=== PATIENT | female | born 1945 | race Caucasian/White ===

== ENCOUNTER 2016-07-11 11:27 | Inpatient (IN) | payer MEDICARE ==
[~2016-07-11] VITALS: Ht 152.4 cm; Wt 52.5 kg
[2016-07-11] MEDS ORDERED: ALBUTEROL/IPRATROPIUM 2.5MG/0.5MG, 3 ML ONE ×2 (11:42→13:11)
[2016-07-11] MEDS ORDERED: SODIUM CHLORIDE 0.9% 1,000ML IVBOLUS ONE ×2 (12:00→13:30)
[2016-07-11] MEDS ORDERED: PLEASE ENTER ALLERGIES MC SCH ×2 (12:00)
[2016-07-11] MEDS ORDERED: ALBUTEROL/IPRATROPIUM 2.5MG/0.5MG, 3 ML NPPB ONE (12:00)
[2016-07-11] MEDS ORDERED: SODIUM CHLORIDE FLUSH 10ML SYR IVF ONE (12:00)
[2016-07-11] MEDS: SODIUM CHLORIDE 0.9% 1,000 ML IV ONE ×2 (12:05→12:25)
[2016-07-11 12:23] LABS: BLOOD UREA NITROGEN 17 mg/dL (7-18)
[2016-07-11 12:30] LABS: ASPARTATE AMINO TRANSFERASE 31 U/L (15-37); IS PT STATUS REG ER OR PRE ER? YES
[2016-07-11] MEDS ORDERED: OMNIPAQUE 350 MG/ML, 100ML BOTTLE ONE (13:13)
[2016-07-11] MEDS ORDERED: CEFTRIAXONE PMX 1GM/50ML 50 ML IVPB ONE (13:30)
[2016-07-11] MEDS ORDERED: AZITHROMYCIN 500 MG in SODIUM CHLORIDE 0.9% 250 ML IVPB ONE (13:30)
[2016-07-11] MEDS ORDERED: CEFTRIAXONE PMX 1GM/50ML 50 ML ONE (13:45)
[2016-07-11] MEDS ORDERED: SODIUM CHLORIDE FLUSH 10ML SYR IVF PRN (14:00)
[2016-07-11] MEDS ORDERED: POLYETHYLENE GLYCOL 17 GM PACKET PO PRN (14:30)
[2016-07-11] MEDS ORDERED: NS + 20MEQ KCL 1,000 ML IV SCH (14:30)
[2016-07-11] MEDS ORDERED: HYDROcodone/APAP 5/325 TABLET PO PRN (14:30)
[2016-07-11] MEDS ORDERED: MORPHINE SULFATE 4 MG/ML, 1ML IVPush PRN (14:30)
[2016-07-11] MEDS ORDERED: DOCUSATE 100 MG CAPSULE PO PRN (14:30)
[2016-07-11] MEDS ORDERED: ACETAMINOPHEN 325 MG TABLET PO PRN (14:30)
[2016-07-11] MEDS ORDERED: ONDANSETRON 2MG/ML, 2ML IVP PRN (14:30)
[2016-07-11] MEDS: CEFTRIAXONE PMX 1GM/50ML 50 ML IV SCH (14:43)
[2016-07-11] MEDS: methylPREDNISolone SOD SUCC 125 MG/2 ML IVPush SCH ×2 (14:46→21:59)
[2016-07-11 15:52] VITALS: BP 91/76
[2016-07-11 16:01] VITALS: BP 91/76
[2016-07-11] MEDS: DOXYCYCLINE 100 MG in DEXTROSE 5% 250 ML IV SCH (16:33)
[2016-07-11] MEDS: ENOXAPARIN 40 MG/0.4 ML SQ SCH (16:38)
[2016-07-11] MEDS: NICOTINE 7 MG/24 HR PATCH.TD24 TD SCH (16:38)
[2016-07-11] MEDS: ALBUTEROL/IPRATROPIUM 2.5MG/0.5MG, 3 ML NPPB SCH ×2 (18:55→23:00)
[2016-07-11 20:26] VITALS: BP 125/83
[2016-07-11] MEDS: GUAIFENESIN/DM 200-20MG, 10ML UDC PO PRN (21:59)
[2016-07-12] MEDS: ALBUTEROL/IPRATROPIUM 2.5MG/0.5MG, 3 ML NPPB SCH ×7 (02:00→21:19)
[2016-07-12] MEDS: DOXYCYCLINE 100 MG in DEXTROSE 5% 250 ML IV SCH ×2 (04:10→16:25)
[2016-07-12 04:13] VITALS: BP 115/79
[2016-07-12] MEDS: GUAIFENESIN/DM 200-20MG, 10ML UDC PO PRN ×2 (04:32→13:24)
[2016-07-12] MEDS: methylPREDNISolone SOD SUCC 125 MG/2 ML IVPush SCH ×3 (06:11→22:53)
[2016-07-12 06:30] LABS: BLOOD UREA NITROGEN 11 mg/dL (7-18)
[2016-07-12 06:38] LABS: IS PT STATUS REG ER OR PRE ER? NO
[2016-07-12 08:37] VITALS: BP 113/47
[2016-07-12] MEDS: SENNA/DOCUSATE TABLET PO SCH (10:13)
[2016-07-12 13:15] VITALS: BP 116/72
[2016-07-12] MEDS: ENOXAPARIN 40 MG/0.4 ML SQ SCH (15:08)
[2016-07-12] MEDS: CEFTRIAXONE PMX 1GM/50ML 50 ML IV SCH (15:09)
[2016-07-12] MEDS: NICOTINE 7 MG/24 HR PATCH.TD24 TD SCH (15:09)
[2016-07-12 20:00] VITALS: BP 142/84
[2016-07-13] MEDS: ALBUTEROL/IPRATROPIUM 2.5MG/0.5MG, 3 ML NPPB SCH ×6 (03:03→22:07)
[2016-07-13 03:23] VITALS: BP 127/78
[2016-07-13] MEDS: DOXYCYCLINE 100 MG in DEXTROSE 5% 250 ML IV SCH ×2 (03:47→16:12)
[2016-07-13 05:30] LABS: BLOOD UREA NITROGEN 15 mg/dL (7-18)
[2016-07-13 07:18] VITALS: BP 113/80
[2016-07-13] MEDS: methylPREDNISolone SOD SUCC 125 MG/2 ML IVPush SCH ×3 (07:30→22:25)
[2016-07-13] MEDS: SENNA/DOCUSATE TABLET PO SCH (09:00)
[2016-07-13 14:43] VITALS: BP 126/75
[2016-07-13] MEDS: NICOTINE 7 MG/24 HR PATCH.TD24 TD SCH (14:59)
[2016-07-13] MEDS: ENOXAPARIN 40 MG/0.4 ML SQ SCH (14:59)
[2016-07-13] MEDS: CEFTRIAXONE PMX 1GM/50ML 50 ML IV SCH (14:59)
[2016-07-13 19:17] VITALS: BP 144/97
[2016-07-13] MEDS: LORazepam 0.5MG TABLET PO PRN (22:26)
[2016-07-14] MEDS: ALBUTEROL/IPRATROPIUM 2.5MG/0.5MG, 3 ML NPPB SCH ×7 (02:30→22:11)
[2016-07-14 02:54] VITALS: BP 110/70
[2016-07-14] MEDS: DOXYCYCLINE 100 MG in DEXTROSE 5% 250 ML IV SCH ×2 (05:09→16:53)
[2016-07-14] MEDS: LORazepam 0.5MG TABLET PO PRN ×2 (06:51→23:05)
[2016-07-14] MEDS: methylPREDNISolone SOD SUCC 125 MG/2 ML IVPush SCH ×3 (06:51→23:01)
[2016-07-14 08:04] VITALS: BP 133/40
[2016-07-14] MEDS: SENNA/DOCUSATE TABLET PO SCH (09:00)
[2016-07-14 14:23] VITALS: BP 119/88
[2016-07-14] MEDS: CEFTRIAXONE PMX 1GM/50ML 50 ML IV SCH (14:31)
[2016-07-14] MEDS: NICOTINE 7 MG/24 HR PATCH.TD24 TD SCH (14:31)
[2016-07-14] MEDS: ENOXAPARIN 40 MG/0.4 ML SQ SCH (14:31)
[2016-07-14 18:50] VITALS: BP 130/56
[2016-07-15 00:49] VITALS: BP 115/74
[2016-07-15] MEDS: DOXYCYCLINE 100 MG in DEXTROSE 5% 250 ML IV SCH ×2 (04:36→16:00)
[2016-07-15] MEDS: methylPREDNISolone SOD SUCC 125 MG/2 ML IVPush SCH ×2 (06:43→14:30)
[2016-07-15] MEDS: ALBUTEROL/IPRATROPIUM 2.5MG/0.5MG, 3 ML NPPB SCH ×3 (06:45→14:00)
[2016-07-15 07:35] VITALS: BP 112/75
[2016-07-15] MEDS: SENNA/DOCUSATE TABLET PO SCH (09:00)
[2016-07-15] MEDS ORDERED: NICO1PAT4 TD (13:00)
[2016-07-15] MEDS ORDERED: DOXY100T PO (13:00)
[2016-07-15] MEDS ORDERED: PRED5TAB PO (13:00)
[2016-07-15] MEDS ORDERED: IPRA3AMP NPPB (13:00)
[2016-07-15] MEDS ORDERED: ALBU90AE INH (13:00)
[2016-07-15] MEDS ORDERED: LORA-445 PO (13:00)
[2016-07-15] MEDS ORDERED: CEFD300C37 PO (13:00)
[2016-07-15 13:54] VITALS: BP 115/75
[2016-07-15] MEDS: ENOXAPARIN 40 MG/0.4 ML SQ SCH (14:30)
[2016-07-15] MEDS: NICOTINE 7 MG/24 HR PATCH.TD24 TD SCH (14:30)
[2016-07-15] MEDS: CEFTRIAXONE PMX 1GM/50ML 50 ML IV SCH (14:48)
[2016-07-15] MEDS ORDERED: PNEUMOCOCCAL 23 VACCINE IM-VACC ONE (16:00)
== END 2016-07-15 17:25 | disposition home or self-care (01) | DRG 871 ==
LOC: ED 13:46 → EDIP 13:47 → ED 14:16 → SUATTDRO 14:28 → 4NOR 15:41
PROVIDERS: ADMIT Family Medicine; ATTEND Family Medicine
DX: A41.9 Sepsis, unspecified organism (principal); J15.9 Unspecified bacterial pneumonia; J96.01 Acute respiratory failure with hypoxia; E44.0 Moderate protein-calorie malnutrition; J44.0 Chronic obstructive pulmonary disease with (acute) lower respiratory infection; J44.1 Chronic obstructive pulmonary disease with (acute) exacerbation; F17.200 Nicotine dependence, unspecified, uncomplicated; Z82.5 Family history of asthma and other chronic lower respiratory diseases; Z68.22 Body mass index [BMI] 22.0-22.9, adult; Z23 Encounter for immunization
CPT/HCPCS: 36415; 71275; 80048; 80053; 83605; 83735; 83880; 84145; 84484; 85025; 85610; 85730; 87040; 90732; 93005; 93306; 94640; 96361; 96365; 96367; J0456; J0696; J1650; J3480; J7060; J7620; Q9967; J2930; J7030; J7050; J7512

== ENCOUNTER 2016-09-28 19:01 | Inpatient (IN) | payer MEDICARE ==
[~2016-09-28] VITALS: Ht 147.3 cm; Wt 53.1 kg
[~2016-09-28 19:01] MED LIST: ALBU90AE INH; CEFD300C37 PO; DOXY100T PO; IPRA3AMP NPPB; LORA-445 PO; NICO1PAT4 TD; PRED5TAB PO
[2016-09-28 19:22] LABS: HEMATOCRIT 39.6 % (34.6-47.8); HEMOGLOBIN 12.9 g/dL (11.7-16.4); WHITE BLOOD COUNT 7.8 x10^3/uL (3.4-10)
[2016-09-28 19:30] LABS: BLOOD UREA NITROGEN 15 mg/dL (7-18)
[2016-09-28] MEDS ORDERED: SODIUM CHLORIDE FLUSH 10ML SYR IVF ONE (19:30)
[2016-09-28 19:36] LABS: IS PT STATUS REG ER OR PRE ER? YES
[2016-09-28] MEDS ORDERED: SODIUM CHLORIDE FLUSH 10ML SYR IVF PRN (20:30)
[2016-09-28] MEDS ORDERED: BUDE10.2 INH (20:34)
[2016-09-28] MEDS ORDERED: POLYETHYLENE GLYCOL 17 GM PACKET PO PRN (21:00)
[2016-09-28] MEDS ORDERED: NITROGLYCERIN 0.4 MG BOTTLE (25 TABS) SL PRN (21:00)
[2016-09-28] MEDS ORDERED: BISACODYL 10 MG SUPP PR PRN (21:00)
[2016-09-28] MEDS ORDERED: ONDANSETRON 2MG/ML, 2ML IVPush PRN (21:00)
[2016-09-28] MEDS ORDERED: ACETAMINOPHEN 325 MG TABLET PO PRN (21:00)
[2016-09-28] MEDS ORDERED: morphine SULFATE 10 MG/ML, 1ML IVPush PRN (21:00)
[2016-09-28] MEDS ORDERED: HEPARIN 5,000 UNITS/ML, 1ML SQ SCH (21:00)
[2016-09-28 21:29] VITALS: BP 171/93
[2016-09-28] MEDS: SODIUM CHLORIDE FLUSH 10ML SYR IVF SCH (21:54)
[2016-09-28 22:29] VITALS: BP_SYST 156; BP_SYST 177; BP_DIAS 101; BP_DIAS 104
[2016-09-28] MEDS ORDERED: ALBUTEROL/IPRATROPIUM 2.5MG/0.5MG, 3 ML NPPB PRN (22:30)
[2016-09-28 23:12] VITALS: BP 176/115
[2016-09-28 23:13] VITALS: BP 165/110
[2016-09-28 23:19] VITALS: BP_SYST 142; BP_SYST 143; BP_DIAS 85; BP_DIAS 92
[2016-09-28] MEDS ORDERED: ENALAPRILAT 1.25 MG/ML, 2ML IV PRN (23:30)
[2016-09-29 01:10] VITALS: BP 166/92
[2016-09-29 01:38] LABS: IS PT STATUS REG ER OR PRE ER? NO
[2016-09-29] MEDS ORDERED: HEPARIN 5,000 UNITS/ML, 1ML IV ONE (02:00)
[2016-09-29] MEDS ORDERED: HEPARIN 25,000 UNITS/500ML PMX 500 ML IV PRN (02:00)
[2016-09-29] MEDS ORDERED: HEPARIN 5,000 UNITS/ML, 1ML IV PRN (02:00)
[2016-09-29] MEDS: LISINOPRIL 10 MG TABLET PO SCH ×2 (02:33→09:11)
[2016-09-29] MEDS ORDERED: ASPIRIN 325 MG TABLET EC PO SCH (06:00)
[2016-09-29] MEDS: ASPIRIN 81 MG TABLET EC PO SCH (06:11)
[2016-09-29 07:14] LABS: IS PT STATUS REG ER OR PRE ER? NO
[2016-09-29 08:22] VITALS: BP 142/84
[2016-09-29] MEDS ORDERED: FLUTICASONE/VILANTEROL 100-25MCG/INH INH SCH (09:00)
[2016-09-29] MEDS: SODIUM CHLORIDE FLUSH 10ML SYR IVF SCH ×2 (09:00→20:52)
[2016-09-29] MEDS: SENNA/DOCUSATE TABLET PO SCH (09:00)
[2016-09-29] MEDS: FLUTICASONE/VILANTEROL 100-25MCG/INH INH SCH (09:00)
[2016-09-29] MEDS ORDERED: BIVALIRUDIN 250 MG ONE (09:03)
[2016-09-29] MEDS ORDERED: MIDAZOLAM 1 MG/ML, 5ML ONE (09:03)
[2016-09-29] MEDS ORDERED: TICAGRELOR 90 MG TABLET ONE (09:03)
[2016-09-29] MEDS ORDERED: HEPARIN 1,000 UNITS/ML, 10ML ONE (09:03)
[2016-09-29] MEDS ORDERED: VERAPAMIL 2.5 MG/ML, 2ML ONE (09:03)
[2016-09-29] MEDS ORDERED: LIDOCAINE 2%, 20ML ONE (09:03)
[2016-09-29] MEDS ORDERED: FENTANYL PF 100 MCG/2ML ONE (09:03)
[2016-09-29] MEDS: CARVEDILOL 3.125 MG TABLET PO SCH ×2 (09:11→18:19)
[2016-09-29] MEDS ORDERED: ADENOSINE 90 MG/30 ML ONE (09:58)
[2016-09-29] MEDS ORDERED: SODIUM CHLORIDE 0.9% 1,000 ML IV SCH (10:24)
[2016-09-29] MEDS ORDERED: ONDANSETRON 2MG/ML, 2ML ONE (10:41)
[2016-09-29 13:02] VITALS: BP 112/75
[2016-09-29 19:33] VITALS: BP 121/74
[2016-09-29] MEDS: TICAGRELOR 90 MG TABLET PO SCH (20:52)
[2016-09-29] MEDS ORDERED: ATORVASTATIN 80 MG TABLET PO SCH (21:00)
[2016-09-30 02:39] VITALS: BP 104/64
[2016-09-30 05:31] LABS: HEMATOCRIT 37.4 % (34.6-47.8); HEMOGLOBIN 12.3 g/dL (11.7-16.4)
[2016-09-30 05:41] LABS: BLOOD UREA NITROGEN 10 mg/dL (7-18)
[2016-09-30] MEDS: ASPIRIN 81 MG TABLET EC PO SCH (06:22)
[2016-09-30 07:02] VITALS: BP 98/63
[2016-09-30 08:15] VITALS: BP 109/71
[2016-09-30] MEDS: CARVEDILOL 3.125 MG TABLET PO SCH (08:16)
[2016-09-30] MEDS: TICAGRELOR 90 MG TABLET PO SCH (08:16)
[2016-09-30] MEDS: LISINOPRIL 10 MG TABLET PO SCH (08:16)
[2016-09-30] MEDS: FLUTICASONE/VILANTEROL 100-25MCG/INH INH SCH (08:17)
[2016-09-30] MEDS: SODIUM CHLORIDE FLUSH 10ML SYR IVF SCH (08:17)
[2016-09-30] MEDS: SENNA/DOCUSATE TABLET PO SCH (08:17)
[2016-09-30] MEDS ORDERED: ASPI-621 PO (10:33)
[2016-09-30] MEDS ORDERED: TICA90TA PO (10:33)
[2016-09-30] MEDS ORDERED: CARV3.1212 PO (10:33)
[2016-09-30] MEDS ORDERED: ATOR80TA75 PO (10:33)
[2016-09-30] MEDS ORDERED: LISI-167 PO (10:33)
== END 2016-09-30 13:06 | disposition home or self-care (01) | DRG 246 ==
LOC: ED 20:19 → EDIP 20:20 → ED 20:23 → 5SO 21:19
PROVIDERS: ADMIT Internal Medicine; ATTEND Internal Medicine
PROC: 027034Z Dilation of Coronary Artery, One Artery with Drug-eluting Intraluminal Device, Percutaneous Approach (ICD-10-PCS; principal; 2016-09-29)
PROC: 4A023N7 Measurement of Cardiac Sampling and Pressure, Left Heart, Percutaneous Approach (ICD-10-PCS; 2016-09-29)
PROC: B2111ZZ Fluoroscopy of Multiple Coronary Arteries using Low Osmolar Contrast (ICD-10-PCS; 2016-09-29)
PROC: B2151ZZ Fluoroscopy of Left Heart using Low Osmolar Contrast (ICD-10-PCS; 2016-09-29)
DX: I21.4 Non-ST elevation (NSTEMI) myocardial infarction (principal); I50.33 Acute on chronic diastolic (congestive) heart failure; J44.9 Chronic obstructive pulmonary disease, unspecified; E78.5 Hyperlipidemia, unspecified; E87.6 Hypokalemia; I10 Essential (primary) hypertension; I25.10 Atherosclerotic heart disease of native coronary artery without angina pectoris; K21.9 Gastro-esophageal reflux disease without esophagitis; Z79.82 Long term (current) use of aspirin; Z79.899 Other long term (current) drug therapy; Z87.891 Personal history of nicotine dependence; Z87.01 Personal history of pneumonia (recurrent); Z83.6 Family history of other diseases of the respiratory system; Z82.49 Family history of ischemic heart disease and other diseases of the circulatory system; Z80.8 Family history of malignant neoplasm of other organs or systems
CPT/HCPCS: 36415; 71010; 80047; 80048; 80061; 82040; 84439; 84443; 84484; 85014; 85018; 85025; 85520; 85610; 85730; 93005; 93458; 93571; 99156; 99157; 99291; C1894; C9600; J0153; J0583; J1644; J2250; J2405; J3010; J3490; C1725; C1769; C1874; C1887; Q9967

== ENCOUNTER → 2016-11-14 | Outpatient (CLI) | payer MEDICARE ==
[~2016-11-14] MED LIST changes: +ASPI-621 PO; +ATOR-2 PO; +BUDE10.2 INH; +CARV3.1212 PO; +LISI-167 PO; +NICO1PAT13 TD; -NICO1PAT4 TD; +TICA90TA PO
== END | disposition home or self-care (01) ==
LOC: CARD 14:09
PROVIDERS: ATTEND Internal Medicine Critical Care Medicine
DX: R06.02 Shortness of breath (principal)
CPT/HCPCS: 94060; 94620; 94726; 94729

== ENCOUNTER → 2017-02-27 | Outpatient (CLI) | payer MEDICARE ==
[~2017-02-27] MED LIST changes: +NICO-486 TD; -NICO1PAT13 TD
== END | disposition home or self-care (01) ==
LOC: CFH 11:19
PROVIDERS: ATTEND Internal Medicine Critical Care Medicine
DX: Z12.2 Encounter for screening for malignant neoplasm of respiratory organs (principal); J44.9 Chronic obstructive pulmonary disease, unspecified; Z87.891 Personal history of nicotine dependence
CPT/HCPCS: G0297

== ENCOUNTER → 2017-04-02 | Outpatient (CLI) | payer MEDICARE | LOC: CFH 09:53 | PROVIDERS: ATTEND Nurse Practitioner Family | DX: Z02.9 Encounter for administrative examinations, unspecified (principal) ==

== ENCOUNTER → 2017-04-16 | Outpatient (CLI) | payer MEDICARE | END | disposition home or self-care (01) | LOC: PETCFH 09:49 | PROVIDERS: ATTEND Nurse Practitioner Family | DX: R91.1 Solitary pulmonary nodule (principal) | CPT/HCPCS: 78815; A9552 ==

== ENCOUNTER 2017-05-07 06:09 | Day surgery (SDC) | payer MEDICARE ==
[~2017-05-07] VITALS: Ht 147.3 cm; Wt 50.6 kg
[2017-05-07] MEDS ORDERED: SODIUM CHLORIDE 0.9% 1,000 ML IV SCH (06:57)
[2017-05-07] MEDS ORDERED: TICA90TA PO (07:07)
[2017-05-07] MEDS ORDERED: FLUT1AER INH (07:07)
[2017-05-07] MEDS ORDERED: ATOR-2 PO (07:07)
[2017-05-07] MEDS ORDERED: CARV3.122 PO (07:07)
[2017-05-07] MEDS ORDERED: ASPI-496 PO (07:07)
[2017-05-07] MEDS ORDERED: LISI-167 PO (07:07)
[2017-05-07 07:09] VITALS: BP 155/95
[2017-05-07] MEDS ORDERED: FENTANYL PF 100 MCG/2ML ONE (08:05)
[2017-05-07] MEDS ORDERED: NALOXONE 1 MG/ML, 2ML ONE (08:06)
[2017-05-07] MEDS ORDERED: FLUMAZENIL 0.1 MG/1 ML, 5ML ONE (08:06)
[2017-05-07] MEDS ORDERED: MIDAZOLAM 1 MG/ML, 2ML ONE (08:06)
== END 2017-05-07 12:35 ==
LOC: RAD 06:09
PROVIDERS: ATTEND Nurse Practitioner Family
DX: C34.91 Malignant neoplasm of unspecified part of right bronchus or lung (principal); Z79.82 Long term (current) use of aspirin; Z87.891 Personal history of nicotine dependence
CPT/HCPCS: 32405; 71045; 77012; 88305; 88341; 88342; 99156; 99157; J2250; J3010; J7030; G0461; J2310

== ENCOUNTER → 2017-05-08 | Outpatient (CLI) | payer MEDICARE ==
[~2017-05-08] MED LIST changes: +ASPI-496 PO; +CARV3.122 PO; +FLUT1AER INH
== END | disposition home or self-care (01) ==
LOC: CFH 12:08
PROVIDERS: ATTEND Nurse Practitioner Family
DX: N63.20 Unspecified lump in the left breast, unspecified quadrant (principal)
CPT/HCPCS: 77066

== ENCOUNTER → 2017-05-14 | Outpatient (CLI) | payer MEDICARE ==
[~2017-05-14] MED LIST changes: +LIDOCAINE 1%, 20ML ONE
== END | disposition home or self-care (01) ==
LOC: CFH 09:51
PROVIDERS: ATTEND Nurse Practitioner Family
DX: N63.20 Unspecified lump in the left breast, unspecified quadrant (principal)
CPT/HCPCS: 19083; 77065; 88305; J3490

== ENCOUNTER → 2017-06-26 | Outpatient (CLI) | payer MEDICARE ==
[~2017-06-26] MED LIST changes: -LIDOCAINE 1%, 20ML ONE
== END | disposition home or self-care (01) ==
LOC: STAR 10:31
PROVIDERS: ATTEND Thoracic Surgery (Cardiothoracic Vascular Surgery)
DX: Z01.818 Encounter for other preprocedural examination (principal)
CPT/HCPCS: 93005

== ENCOUNTER 2017-07-04 10:03 | Inpatient (IN) | payer MEDICARE ==
[2017-06-26 11:03] VITALS: BP 148/107
[~2017-07-04] VITALS: Ht 147.3 cm; Wt 58.7 kg
[~2017-07-04 10:03] MED LIST changes: +BUPIVACAINE/PF 0.5% ONE
[2017-07-04] MEDS ORDERED: FENTANYL PF 100 MCG/2ML ONE ×2 (11:40→14:32)
[2017-07-04] MEDS ORDERED: SODIUM BICARBONATE 4.2%, 5ML ONE (11:47)
[2017-07-04] MEDS ORDERED: LIDOCAINE 1%, 20ML ONE (11:47)
[2017-07-04] MEDS ORDERED: LIDOCAINE-MPF 1%, 2ML ONE (12:03)
[2017-07-04] MEDS ORDERED: BUPIVACAINE/PF 0.5% ONE (12:21)
[2017-07-04] MEDS ORDERED: EPINEPHRINE 1 MG/ML, 1ML ONE ×2 (12:21→12:44)
[2017-07-04] MEDS ORDERED: ISOSULFAN BLUE 10 MG/ML, 5ML IV ONE (12:21)
[2017-07-04] MEDS ORDERED: GABAPENTIN 300 MG CAPSULE ONE (12:23)
[2017-07-04] MEDS ORDERED: ONDANSETRON ODT 8 MG ONE (12:23)
[2017-07-04] MEDS ORDERED: OxyconTIN ER 10 MG TAB.ER ONE (12:23)
[2017-07-04] MEDS ORDERED: ONDANSETRON ODT 8 MG PO PRN (12:30)
[2017-07-04] MEDS ORDERED: GABAPENTIN 300 MG CAPSULE PO ONE (12:30)
[2017-07-04] MEDS ORDERED: OxyconTIN ER 10 MG TAB.ER PO ONE (12:30)
[2017-07-04] MEDS ORDERED: LACTATED RINGERS 1,000 ML IV SCH ×2 (12:33→12:37)
[2017-07-04] MEDS ORDERED: LABETALOL 5MG/ML, 20ML ONE (12:44)
[2017-07-04] MEDS ORDERED: PHENYLEPHRINE 10 MG/ML ONE (12:44)
[2017-07-04] MEDS ORDERED: LIDOCAINE-MPF 1%, 2ML INFIL ONE (13:00)
[2017-07-04] MEDS ORDERED: ONDANSETRON 2MG/ML, 2ML IVPush PRN ×2 (13:30→14:00)
[2017-07-04] MEDS ORDERED: LORazepam 2 MG/ML, 1ML IVPush PRN ×2 (13:30→14:00)
[2017-07-04] MEDS ORDERED: MIDAZOLAM 1 MG/ML, 2ML IV PRN (13:30)
[2017-07-04] MEDS ORDERED: LABETALOL 5MG/ML, 20ML IV PRN (13:30)
[2017-07-04] MEDS ORDERED: ALBUTEROL/IPRATROPIUM 2.5MG/0.5MG, 3 ML NPPB PRN ×2 (13:30→17:30)
[2017-07-04] MEDS ORDERED: hydrALAzine 20 MG/ML, 1ML IV PRN (13:30)
[2017-07-04] MEDS ORDERED: morphine SULFATE 10 MG/ML, 1ML IV PRN (13:30)
[2017-07-04] MEDS ORDERED: PROMETHAZINE 25 MG/ML, 1ML IV PRN (13:30)
[2017-07-04] MEDS ORDERED: ALBUTEROL SULFATE 2.5 MG/3 ML NPPB PRN (13:30)
[2017-07-04] MEDS ORDERED: OXYcodone 5 MG/5 ML ORAL.SOL UDC PO PRN (13:30)
[2017-07-04] MEDS ORDERED: DIAZEPAM 5 MG/ML, 2ML IVPush PRN (13:30)
[2017-07-04] MEDS ORDERED: MEPERIDINE/PF 25MG/0.5ML IVPush PRN (13:30)
[2017-07-04] MEDS ORDERED: DIPHENHYDRAMINE 50 MG/ML, 1ML IVPush PRN (14:00)
[2017-07-04] MEDS ORDERED: LORazepam 1MG TABLET PO PRN (14:00)
[2017-07-04] MEDS ORDERED: ENALAPRILAT 1.25 MG/ML, 2ML IVPush PRN (14:00)
[2017-07-04] MEDS ORDERED: hydrALAzine 20 MG/ML, 1ML IVPush PRN (14:00)
[2017-07-04] MEDS ORDERED: morphine SULFATE 10 MG/ML, 1ML IVPush PRN (14:00)
[2017-07-04] MEDS ORDERED: ACETAMINOPHEN 650 MG SUPP PR PRN (14:00)
[2017-07-04] MEDS ORDERED: ACETAMINOPHEN 325 MG TABLET PO PRN (14:00)
[2017-07-04] MEDS ORDERED: DIPHENHYDRAMINE 25 MG CAPSULE PO PRN (14:00)
[2017-07-04] MEDS: FAMOTIDINE 20 MG/2 ML IVPush SCH (14:00)
[2017-07-04] MEDS ORDERED: DEXAMETHASONE 4 MG/ML, 1ML ONE (14:21)
[2017-07-04] MEDS ORDERED: ONDANSETRON 2MG/ML, 2ML ONE ×2 (14:21→15:12)
[2017-07-04] MEDS ORDERED: CEFAZOLIN 1,000 MG ONE (14:21)
[2017-07-04] MEDS ORDERED: SUCCINYLCHOLINE 20 MG/ML, 10ML ONE (14:21)
[2017-07-04] MEDS ORDERED: PROPOFOL 10 MG/ML, 20ML ONE (14:21)
[2017-07-04] MEDS ORDERED: NEOSTIGMINE 1 MG/ML, 10ML ONE (14:21)
[2017-07-04] MEDS ORDERED: ROCURONIUM 10 MG/ML,10ML ONE (14:21)
[2017-07-04] MEDS ORDERED: GLYCOPYRROLATE 0.2MG/1ML, 5ML ONE (14:21)
[2017-07-04] MEDS ORDERED: SUGAMMADEX 200 MG/2 ML IVPush ONE (14:30)
[2017-07-04] MEDS: FENTANYL PF 100 MCG/2ML IV PRN ×3 (14:34→15:11)
[2017-07-04] MEDS: LACTATED RINGERS 1,000 ML IV SCH (16:29)
[2017-07-04 16:33] VITALS: BP 118/82
[2017-07-04 17:05] VITALS: BP 104/63
[2017-07-04 20:35] VITALS: BP 96/58
[2017-07-04] MEDS ORDERED: ATORVASTATIN 80 MG TABLET PO SCH (21:00)
[2017-07-04] MEDS: HYDROcodone/APAP 5/325 TABLET PO PRN (21:10)
[2017-07-04] MEDS: CARVEDILOL 3.125 MG TABLET PO SCH (21:11)
[2017-07-05] MEDS: FAMOTIDINE 20 MG/2 ML IVPush SCH ×2 (02:03→14:11)
[2017-07-05 02:23] VITALS: BP 91/69
[2017-07-05] MEDS: LACTATED RINGERS 1,000 ML IV SCH (03:08)
[2017-07-05 04:22] VITALS: BP 100/45
[2017-07-05 04:41] LABS: BASOPHILS # (AUTO) 0.01 x10^3/uL (0-0.1); BASOPHILS % (AUTO) 0 % (0-1); EOSINOPHILS % (AUTO) 0 % (1-7); LYMPHOCYTES % (AUTO) 9 % (22-44); MD NO; MEAN CORPUSCULAR HEMOGLOBIN 28.5 pg (27.0-34.8); MEAN CORPUSCULAR HGB CONC 33.2 g/dL (32.4-35.8); MEAN CORPUSCULAR VOLUME 85.7 fL (80-100); MONOCYTES # (AUTO) 1.03 x10^3/uL (0.2-0.8); MONOCYTES % (AUTO) 8 % (2-9); NEUTROPHILS # (AUTO) 10.83 x10^3/uL (1.8-6.8); NEUTROPHILS % (AUTO) 83 % (42-75); PLATELET COUNT 251 x10^3/uL (130-400); RED BLOOD COUNT 4.05 x10^6/uL (3.82-5.3); RED CELL DISTRIBUTION WIDTH 15.6 % (9.6-15.2)
[2017-07-05 04:50] LABS: ANION GAP 9 mmol/L (5-15); CALCIUM 8.2 mg/dL (8.5-10.1); CHLORIDE 109 mmol/L (98-107); CREATININE 0.75 mg/dL (0.55-1.02)
[2017-07-05] MEDS: HYDROcodone/APAP 5/325 TABLET PO PRN ×2 (06:56→14:43)
[2017-07-05 07:20] VITALS: BP 101/68
[2017-07-05] MEDS: CARVEDILOL 3.125 MG TABLET PO SCH (07:48)
[2017-07-05] MEDS ORDERED: LISINOPRIL 10 MG TABLET PO SCH (09:00)
[2017-07-05] MEDS ORDERED: FLUTICASONE/VILANTEROL 100-25MCG/INH INH SCH (09:00)
[2017-07-05] MEDS ORDERED: ENOXAPARIN 40 MG/0.4 ML SQ SCH (09:00)
[2017-07-08] MEDS ORDERED: LORA0.5T PO (09:57)
[2017-07-08] MEDS ORDERED: HYDR-3240 PO (09:58)
== END 2017-07-05 15:36 | disposition home or self-care (01) | DRG 164 ==
LOC: CFH 10:03 → ORIP 10:24 → EDSTATUS 14:00 → 3NW 16:13
PROVIDERS: ADMIT Surgery; ATTEND Surgery
PROC: 0BBF4ZZ Excision of Right Lower Lung Lobe, Percutaneous Endoscopic Approach (ICD-10-PCS; principal; 2017-07-04 14:30)
PROC: 0HBU0ZZ Excision of Left Breast, Open Approach (ICD-10-PCS; 2017-07-04 14:30)
DX: C34.31 Malignant neoplasm of lower lobe, right bronchus or lung (principal); J96.10 Chronic respiratory failure, unspecified whether with hypoxia or hypercapnia; I27.20 Pulmonary hypertension, unspecified; J44.9 Chronic obstructive pulmonary disease, unspecified; D05.12 Intraductal carcinoma in situ of left breast; G43.909 Migraine, unspecified, not intractable, without status migrainosus; Z87.891 Personal history of nicotine dependence; Z79.899 Other long term (current) drug therapy; Z79.82 Long term (current) use of aspirin
CPT/HCPCS: 19285; 36415; 71045; 76098; 80048; 85025; 86850; 86900; 86923; 88305; 88307; 88309; C1729; J0171; J0690; J1100; J1650; J2405; J2704; J2710; J3010; J3490; Q0162; 77065; J0330; J2270; J2370; J7120; S0028

== ENCOUNTER → 2017-07-31 | Outpatient (CLI) | payer MEDICARE ==
[~2017-07-31] MED LIST changes: -BUPIVACAINE/PF 0.5% ONE; +HYDR-3240 PO; +LORA0.5T PO
== END ==
LOC: ROC 12:52
PROVIDERS: ATTEND Radiology Radiation Oncology
DX: Z08 Encounter for follow-up examination after completed treatment for malignant neoplasm (principal); C34.31 Malignant neoplasm of lower lobe, right bronchus or lung; Z79.82 Long term (current) use of aspirin; Z87.891 Personal history of nicotine dependence
CPT/HCPCS: 99214; G0463

== ENCOUNTER → 2017-10-03 | Outpatient (CLI) | payer MEDICARE ==
[~2017-10-03] MED LIST changes: -IPRA3AMP NPPB; +IPRA3AMP30 NPPB
== END | disposition home or self-care (01) ==
LOC: ROC 08:59
PROVIDERS: ATTEND Radiology Radiation Oncology
DX: D05.12 Intraductal carcinoma in situ of left breast (principal); C34.31 Malignant neoplasm of lower lobe, right bronchus or lung
CPT/HCPCS: 99213; G0463

== ENCOUNTER → 2017-12-25 | Outpatient (CLI) | payer MEDICARE | END | disposition home or self-care (01) | LOC: CFH 12:39 | PROVIDERS: ATTEND Radiology Radiation Oncology | DX: D05.12 Intraductal carcinoma in situ of left breast (principal) | CPT/HCPCS: 77065 ==

== ENCOUNTER → 2017-12-27 | Outpatient (CLI) | payer MEDICARE | END | disposition home or self-care (01) | LOC: ROC 10:07 | PROVIDERS: ATTEND Radiology Radiation Oncology | DX: D05.12 Intraductal carcinoma in situ of left breast (principal) | CPT/HCPCS: 99213; G0463 ==

== ENCOUNTER → 2018-01-28 | Outpatient (CLI) | payer MEDICARE ==
[~2018-01-28] MED LIST changes: +OMNIPAQUE 350 MG/ML, 75ML BOTTLE ONE
== END | disposition home or self-care (01) ==
LOC: CFH 10:42
PROVIDERS: ATTEND Radiology Radiation Oncology
DX: J84.10 Pulmonary fibrosis, unspecified (principal); R91.8 Other nonspecific abnormal finding of lung field; I10 Essential (primary) hypertension
CPT/HCPCS: 71260; Q9967

== ENCOUNTER 2018-05-13 09:29 | Outpatient (CLI) | payer MEDICARE ==
[~2018-05-13 09:29] MED LIST changes: -ASPI-621 PO; +ASPI81TA45 PO; -OMNIPAQUE 350 MG/ML, 75ML BOTTLE ONE
== END 2018-05-13 23:59 | disposition home or self-care (01) ==
LOC: CFH 09:29
PROVIDERS: ATTEND Radiology Radiation Oncology
DX: C50.912 Malignant neoplasm of unspecified site of left female breast (principal); I10 Essential (primary) hypertension
CPT/HCPCS: 77066; G0279

== ENCOUNTER → 2018-06-04 | Outpatient (CLI) | payer MEDICARE | END | disposition home or self-care (01) | LOC: CFH 15:50 | PROVIDERS: ATTEND Family Medicine | DX: C34.11 Malignant neoplasm of upper lobe, right bronchus or lung (principal); C50.912 Malignant neoplasm of unspecified site of left female breast; J90 Pleural effusion, not elsewhere classified; J43.9 Emphysema, unspecified; R91.1 Solitary pulmonary nodule | CPT/HCPCS: 71250 ==

== ENCOUNTER 2018-06-06 07:43 | Outpatient (CLI) | payer MEDICARE | END 2018-06-06 23:59 | disposition home or self-care (01) | LOC: ROC 07:43 | PROVIDERS: ATTEND Radiology Radiation Oncology | DX: D05.12 Intraductal carcinoma in situ of left breast (principal) | CPT/HCPCS: 99213; G0463 ==

== ENCOUNTER → 2018-08-23 | Outpatient (CLI) | payer MEDICARE | END | disposition home or self-care (01) | LOC: ROC 08:58 | PROVIDERS: ATTEND Radiology Radiation Oncology | DX: Z08 Encounter for follow-up examination after completed treatment for malignant neoplasm (principal); Z85.3 Personal history of malignant neoplasm of breast | CPT/HCPCS: 99213; G0463 ==

== ENCOUNTER → 2019-05-15 | Outpatient (CLI) | payer MEDICARE | END | disposition home or self-care (01) | LOC: CFH 09:47 | PROVIDERS: ATTEND Radiology Radiation Oncology | DX: Z12.31 Encounter for screening mammogram for malignant neoplasm of breast (principal) | CPT/HCPCS: 77063; 77067 ==

== ENCOUNTER 2019-05-30 08:29 | Outpatient (CLI) | payer MEDICARE | END 2019-05-30 23:59 | disposition home or self-care (01) | LOC: ROC 08:29 | PROVIDERS: ATTEND Radiology Radiation Oncology | DX: D05.12 Intraductal carcinoma in situ of left breast (principal); C34.31 Malignant neoplasm of lower lobe, right bronchus or lung | CPT/HCPCS: 99213; G0463 ==

== ENCOUNTER 2019-09-02 12:01 | Outpatient (CLI) | payer MEDICARE ==
[~2019-09-02 12:01] MED LIST changes: +REGADENOSON 0.4 MG/5 ML SYRINGE ONE
== END 2019-09-02 23:59 | disposition home or self-care (01) ==
LOC: CFH 12:01
PROVIDERS: ATTEND Internal Medicine Cardiovascular Disease
DX: I25.2 Old myocardial infarction (principal); I25.10 Atherosclerotic heart disease of native coronary artery without angina pectoris
CPT/HCPCS: 78452; 93017; 93306; A9502; J2785

== ENCOUNTER → 2019-12-01 | Outpatient (CLI) | payer MEDICARE ==
[~2019-12-01] MED LIST changes: -REGADENOSON 0.4 MG/5 ML SYRINGE ONE
== END | disposition home or self-care (01) ==
LOC: CFH 10:57
PROVIDERS: ATTEND Radiology Radiation Oncology
DX: C34.31 Malignant neoplasm of lower lobe, right bronchus or lung (principal); J43.9 Emphysema, unspecified; J98.4 Other disorders of lung; I25.10 Atherosclerotic heart disease of native coronary artery without angina pectoris; I77.810 Thoracic aortic ectasia
CPT/HCPCS: 71250

== ENCOUNTER 2019-12-18 09:30 | Outpatient (CLI) | payer MEDICARE | END 2019-12-18 23:59 | disposition home or self-care (01) | LOC: ROC 09:30 | PROVIDERS: ATTEND Radiology Radiation Oncology | DX: Z08 Encounter for follow-up examination after completed treatment for malignant neoplasm (principal); Z85.3 Personal history of malignant neoplasm of breast; I25.10 Atherosclerotic heart disease of native coronary artery without angina pectoris; I10 Essential (primary) hypertension; E78.5 Hyperlipidemia, unspecified; I25.2 Old myocardial infarction | CPT/HCPCS: 99213; G0463 ==

== ENCOUNTER → 2020-05-17 | Outpatient (CLI) | payer MEDICARE ==
[~2020-05-17] MED LIST changes: +HYDR-1067 PO; -HYDR-3240 PO
== END | disposition home or self-care (01) ==
LOC: CFH 11:54
PROVIDERS: ATTEND Radiology Radiation Oncology
DX: Z12.31 Encounter for screening mammogram for malignant neoplasm of breast (principal)
CPT/HCPCS: 77063; 77067

== ENCOUNTER 2020-06-17 07:10 | Outpatient (CLI) | payer MEDICARE | END 2020-06-17 23:59 | disposition home or self-care (01) | LOC: ROC 07:10 | PROVIDERS: ATTEND Radiology Radiation Oncology | DX: Z08 Encounter for follow-up examination after completed treatment for malignant neoplasm (principal); D05.12 Intraductal carcinoma in situ of left breast; E78.5 Hyperlipidemia, unspecified | CPT/HCPCS: 99213; G0463 ==

== ENCOUNTER → 2020-07-19 | Outpatient (CLI) | payer MEDICARE ==
[~2020-07-19] MED LIST changes: -HYDR-1067 PO; +HYDR-2214 PO
== END | disposition home or self-care (01) ==
LOC: CFH 10:34
PROVIDERS: ATTEND Radiology Radiation Oncology
DX: D05.12 Intraductal carcinoma in situ of left breast (principal)
CPT/HCPCS: 76641

== ENCOUNTER → 2020-09-27 | Outpatient (CLI) | payer MEDICARE ==
[~2020-09-27] MED LIST changes: +OMNIPAQUE 350 MG/ML, 100ML BOTTLE ONE
== END | disposition home or self-care (01) ==
LOC: CFH 10:22
PROVIDERS: ATTEND Internal Medicine
DX: J92.9 Pleural plaque without asbestos (principal); J43.9 Emphysema, unspecified; I71.2 Thoracic aortic aneurysm, without rupture; I70.0 Atherosclerosis of aorta; M41.86 Other forms of scoliosis, lumbar region
CPT/HCPCS: 71275; 82565; Q9967